=== PATIENT | female | born 1960 | race Hispanic/Latino ===

== ENCOUNTER 2024-07-14 13:35 | Emergency (ER) | payer MEDICARE ==
[~2024-07-14] VITALS: Ht 160 cm; Wt 125.2 kg
[2024-07-14 14:29] VITALS: TEMP 97.8
[2024-07-14] MEDS: KETOROLAC TROMETHAMINE 30 MG/ML VIAL IM STA (15:12)
[2024-07-14] MEDS ORDERED: ULTRAM 50MG50 MG PO (16:08)
[2024-07-14 16:15] VITALS: PULSE 65; RESP 18; O2SAT 99
== END 2024-07-14 16:20 | disposition home or self-care (01) ==
LOC: ER 13:49
DX: S92.515A Nondisplaced fracture of proximal phalanx of left lesser toe(s), initial encounter for closed fracture (principal); M25.572 Pain in left ankle and joints of left foot; X50.1XXA Overexertion from prolonged static or awkward postures, initial encounter; Y93.01 Activity, walking, marching and hiking; Y92.89 Other specified places as the place of occurrence of the external cause; I10 Essential (primary) hypertension; E11.9 Type 2 diabetes mellitus without complications; E78.5 Hyperlipidemia, unspecified; Z85.818 Personal history of malignant neoplasm of other sites of lip, oral cavity, and pharynx
CPT/HCPCS: 73610; 73630; 99283; J1885